=== PATIENT | male | born 1995 | race Caucasian/White ===

== ENCOUNTER 2020-05-31 00:01 | Emergency (ER) | payer BC ==
[~2020-05-31] VITALS: Ht 175.3 cm; Wt 94.4 kg
[2020-05-31] MEDS ORDERED: KETOROLAC 30 MG/ML 1ML VIAL IV ONE (00:30)
[2020-05-31 01:13] LABS: BASO % 0.3 % (0.0-1.0); EOS # 0.1 10^3/uL (0.0-0.5); EOS % 1.3 % (0.0-3.0); HEMATOCRIT 45.8 % (42.0-52.0); HEMOGLOBIN 15.7 g/dl (13.5-17.5); LYMPH # 1.6 10^3/uL (1.5-5.0); LYMPH % 22.7 % (24.0-44.0); MEAN CORPUSCULAR HEMOGLOBIN 29.4 pg (27.0-33.0); MEAN CORPUSCULAR HGB CONC 34.3 g/dl (32.0-36.5); MEAN CORPUSCULAR VOLUME 85.8 fl (80.0-96.0); MONO # 0.5 10^3/uL (0.0-0.8); MONO % 6.6 % (2.0-8.0); NEUTROPHILS # 4.9 10^3/uL (1.5-8.5); NEUTROPHILS % 68.7 % (36.0-66.0); PLATELET COUNT, AUTOMATED 207 10^3/uL (150-450); RED BLOOD COUNT 5.34 10^6/uL (4.30-6.10); WHITE BLOOD COUNT 7.1 10^3/uL (4.0-10.0)
--- NOTE | 2020-05-31 01:16 | REPVR ---
PROCEDURE INFORMATION: Exam: US Scrotum Exam date and time: 05/31/2020 12:24 AM Age: 24 years old Clinical indication: Scrotum pain; Additional info: Right testcular pain, hit RT scrotum during intercourse 1 month ago, sensitive since but increased pain tonight TECHNIQUE: Imaging protocol: Real-time ultrasound of the scrotum and contents with color Doppler and image documentation. COMPARISON: No relevant prior studies available. FINDINGS: Right testicle: Right testes measures 4.4 x 2.5 x 2.9 cm. There is a complex right testicular mass measuring 2.8 x 2.3 x 2.4 cm with minimal internal flow. Left testicle: The left testicle measures 3.9 x 2.0 x 2.7 cm. Epididymides: Left epididymis measures 0.4 cm. Right epididymis measures 0.8 cm. Scrotum: Normal. Other findings: Normal vascular flow to bilateral testicles. IMPRESSION: Complex right testicular mass measuring 2.8 x 2.3 x 2.4 cm. Findings could represent a intra testicular hematoma. Neoplastic lesion not excluded. Short-term ultrasound or MRI can be helpful for further evaluation. Electronically signed by: Joni Arroyo On 05/31/2020 01:16:22 AM
[2020-05-31 01:23] LABS: INR 1.03; PROTHROMBIN TIME 13.7 SECONDS (12.5-14.3)
[2020-05-31 01:24] LABS: PARTIAL THROMBOPLASTIN TIME 24.9 SECONDS (24.2-38.5)
[2020-05-31 01:37] LABS: ALBUMIN 4.3 GM/DL (3.2-5.2); ALT/SGPT 21 U/L (12-78); BILIRUBIN,DIRECT 0.2 MG/DL (0.0-0.2); BILIRUBIN,TOTAL 0.5 MG/DL (0.2-1.0); BLOOD UREA NITROGEN 12 MG/DL (7-18); CALCIUM LEVEL 8.8 MG/DL (8.5-10.1); CARBON DIOXIDE LEVEL 27 MEQ/L (21-32); CHLORIDE LEVEL 106 MEQ/L (98-107); CREATININE FOR GFR 0.87 MG/DL (0.70-1.30); GLOMERULAR FILTRATION RATE > 60.0 (>60); GLUCOSE, FASTING 130 MG/DL (70-100); POTASSIUM SERUM 3.6 MEQ/L (3.5-5.1); SODIUM LEVEL 141 MEQ/L (136-145); TOTAL PROTEIN 7.2 GM/DL (6.4-8.2)
[2020-05-31] MEDS ORDERED: PERCOCET 5MG/325MG TAB PO ONE (03:25)
[2020-05-31 03:27] LABS: CHLAMYDIA DNA AMPLIFICATION NEGATIVE (NEGATIVE); GC DNA AMPLIFICATION NEGATIVE (NEGATIVE)
[2020-05-31] MEDS ORDERED: IBUP80TA PO (03:40)
[2020-05-31 04:25] VITALS: BP 132/68
[2020-06-05] MEDS ORDERED: PERC5TAB12 PO (11:29)
== END 2020-05-31 04:27 | disposition home or self-care (01) ==
LOC: M ED 00:01
DX: N50.89 Other specified disorders of the male genital organs (principal)
CPT/HCPCS: 76870; 80048; 80076; 81001; 82105; 83605; 84702; 85025; 85610; 85730; 87661; 93976; 96374; 99284; J1885

== ENCOUNTER → 2020-06-03 | Outpatient (CLI) | payer BC ==
[~2020-06-03] MED LIST: IBUP80TA PO; PERC5TAB12 PO
[2020-06-03 18:00] LABS: HEMATOCRIT 47.2 % (42.0-52.0); HEMOGLOBIN 15.9 g/dl (13.5-17.5); MEAN CORPUSCULAR HEMOGLOBIN 29.3 pg (27.0-33.0); MEAN CORPUSCULAR HGB CONC 33.7 g/dl (32.0-36.5); MEAN CORPUSCULAR VOLUME 87.1 fl (80.0-96.0); PLATELET COUNT, AUTOMATED 235 10^3/uL (150-450); RED BLOOD COUNT 5.42 10^6/uL (4.30-6.10); WHITE BLOOD COUNT 9.2 10^3/uL (4.0-10.0)
[2020-06-03 18:25] LABS: BACTERIA, URINE AUTO NEGATIVE (NEGATIVE); MUCUS, URINE SMALL (NEGATIVE); RBC, URINE AUTO 0 /HPF (0-3); SQUAMOUS EPITHELIAL CELL UR AU 0 /HPF (0-6); WBC, URINE AUTO 0 /HPF (0-3)
[2020-06-03 18:41] LABS: ALBUMIN 4.6 GM/DL (3.2-5.2); ALT/SGPT 20 U/L (12-78); BLOOD UREA NITROGEN 12 MG/DL (7-18); CALCIUM LEVEL 9.6 MG/DL (8.5-10.1); CARBON DIOXIDE LEVEL 28 MEQ/L (21-32); CHLORIDE LEVEL 102 MEQ/L (98-107); CREATININE FOR GFR 0.86 MG/DL (0.70-1.30); GLOMERULAR FILTRATION RATE > 60.0 (>60); GLUCOSE, FASTING 78 MG/DL (70-100); LDH LACTATE DEHYDROGENASE 156 U/L (87-241); POTASSIUM SERUM 4.5 MEQ/L (3.5-5.1); SODIUM LEVEL 137 MEQ/L (136-145); TOTAL PROTEIN 7.6 GM/DL (6.4-8.2)
--- NOTE | 2020-06-04 03:07 | REPPI ---
INDICATION: N50.89 TESTICULAR MASS Z01.818 PRE OP EXAM COMPARISON: None. TECHNIQUE: PA and lateral. FINDINGS: The mediastinum and cardiac silhouette are normal. The lung wang are clear and without acute consolidation, effusion, or pneumothorax. The skeletal structures are intact and normal. IMPRESSION: No acute cardiopulmonary process. <Electronically signed by Shree Stephenson > 06/04/20 [id number]
== END ==
LOC: M PLAIMG 15:33
PROVIDERS: ATTEND Specialist
DX: N50.89 Other specified disorders of the male genital organs (principal); Z01.818 Encounter for other preprocedural examination

== ENCOUNTER → 2020-06-04 | Outpatient (CLI) | payer BC | LOC: M LABSMTC 12:45 | PROVIDERS: ATTEND Anesthesiology | DX: Z20.822 Contact with and (suspected) exposure to COVID-19 (principal) ==

== ENCOUNTER → 2020-06-05 | Outpatient (CLI) | payer BC ==
[~2020-06-05] MED LIST changes: +GASTROGRAFIN SOLUTION 30ML (Q9963) As Ordered ONE; +ISOVUE-370 76% 100ML VIAL As Ordered ONE
--- NOTE | 2020-06-05 12:11 | REP ---
INDICATION: TESTICULAR MASS. COMPARISON: Scrotal ultrasound dated 05/31/2020. TECHNIQUE: Abdomen/pelvis CT with IV and bowel contrast. Imaging of the abdomen and pelvis is performed during the portal venous phase of enhancement. Imaging of the abdomen, excluding the pelvis is repeated during the renal excretion phase of enhancement. FINDINGS: The visualized lower lung wang demonstrate a 7 mm lung nodule inferiorly anteriorly in the left lung likely in the anterior segment of the left lower lobe just posterior to the major fissure. The hepatic parenchyma, gallbladder, pancreas, spleen, adrenals, kidneys and abdominal aorta are unremarkable on both phases of the study. There is no periaortic adenopathy or mass. There is no mesenteric adenopathy, mass or ascites. The bowel is unremarkable. Pelvis: The patient indicates he has an appendectomy. The bladder is unremarkable. There is no adenopathy or ascites. The pelvic bowel loops are unremarkable. There are no lytic, blastic or destructive skeletal changes. IMPRESSION: Essentially negative CT of the abdomen and pelvis. There is no adenopathy, ascites or mass. <Electronically signed by Felix Ta > 06/05/20 [id number]
== END ==
LOC: M RAD 09:14
PROVIDERS: ATTEND Specialist
DX: N50.89 Other specified disorders of the male genital organs (principal); R91.1 Solitary pulmonary nodule
CPT/HCPCS: 74177; Q9963; Q9967

== ENCOUNTER 2020-06-06 10:53 | Day surgery (SDC) | payer BC ==
[~2020-06-06] VITALS: Ht 177.8 cm; Wt 91.1 kg
[~2020-06-06 10:53] MED LIST changes: +ACETAMINOPHEN 1000MG 100ML IV BTL (OFIRMEV) (J0131 PER 10MG) As Ordered ONE; +BUPIVACAINE/EPIN 0.25% 30 ML VIAL As Ordered ONE; -GASTROGRAFIN SOLUTION 30ML (Q9963) As Ordered ONE; -ISOVUE-370 76% 100ML VIAL As Ordered ONE; +KETOROLAC 60MG 2ML VIAL As Ordered ONE; +LIDOCAINE 1% MDV 20ML VIAL SQ PRN; +LIDOCAINE 2% 100MG/5ML SDV (FOR ANES.) As Ordered ONE; +LR 1,000 ML IV ONE; +MIDAZOLAM INJ 2MG/2ML VIAL (J2250 PER 1MG) As Ordered ONE; +ONDANSETRON 4MG/2ML VIAL As Ordered ONE; +ceFAZolin SOD 2 GM in IV 1 EA IV ONE; +dexameTHASONE 4 MG/ML 1ML VIAL (J1100 PER 1MG) As Ordered ONE; +fentaNYL 100 MCG/2 ML INJECTION (J3010) As Ordered ONE; +propofoL 200 MG/20 ML VIAL As Ordered ONE
[2020-06-06] MEDS ORDERED: ONDANSETRON 4MG/2ML VIAL IV PRN (14:20)
[2020-06-06] MEDS ORDERED: oxyCODONE 5MG TAB PO PRN (14:20)
[2020-06-06] MEDS ORDERED: MEPERIDINE INJ 25 MG/ML VIAL (J2175) IV PRN (14:20)
[2020-06-06] MEDS ORDERED: METOCLOPRAMIDE INJ 10MG/2ML VIAL (J2765 PER 1) IV PRN (14:20)
[2020-06-06] MEDS ORDERED: fentaNYL 100 MCG/2 ML INJECTION (J3010) IV PRN (14:20)
[2020-06-06] MEDS ORDERED: LR 1,000 ML IV SCH (14:20)
[2020-06-06 15:25] VITALS: BP 118/72
--- NOTE | 2020-06-06 15:29 | ROOPDOC ---
[facility] Report Of Operation Report of Operation DATE OF PROCEDURE: 06/06/20 PREPROCEDURE DIAGNOSES: Right scrotal mass POSTPROCEDURE DIAGNOSES: Same PROCEDURE: Right radical inguinal orchiectomy SURGEON: Analy Martinez MD PROCESSING ASSOCIATE: None ANESTHESIA: General ESTIMATED BLOOD LOSS: Approximately 5 mL. COMPLICATIONS: None PROCEDURE NOTE: Patient is a 24-year-old gentleman who went to the emergency room for scrotal pain and a scrotal ultrasound done on 05/31/20 showed a 2.8 cm right testicular mass with an associated hematoma. He denied any trauma to the area. His AFP level was elevated at 151.3. His other tumor markers were normal. A CT scan of the abdomen and pelvis was done which showed no retroperitoneal lymphadenopathy but there was a 7 mm left lower lung nodule anteriorly. After discussing all different options, alternatives, risks, benefits it was decided to proceed with a right radical inguinal orchiectomy for presumed testicular cancer. DESCRIPTION OF PROCEDURE: The patient was brought into the operating room. Sequential compression devices were in place and preoperative antibiotics had be en given. He was placed supine on a padded operating table and prepped and draped in the usual fashion. 10 mL of lidocaine with epi was injected subcutaneousally and a transverse incision was made over the right external inguinal ring. The incision was brought down to external oblique aponeurosis which was opened and the spermatic cord was identified and a vessel loop was placed. The testicle was then pushed from the scrotum through the incision. The gubernacular attachments to the scrotum were all released. The spermatic cord was then released from its attachments. The vas deferens was ligated using 2-0 silk sutures. The spermatic cord was then clamped at the level of the internal inguinal ring and was double suture ligated proximally. The specimen was sent to pathology. Irrigation was done. The external oblique aponeurosis was reapproximated using 2-0 chromic and skin was closed using 4-0 Monocryl subcutaneously. The patient tolerated the procedure well and was returned to the recovery room in stable condition. ANALY MARTINEZ MD Jun 06, 2020 15:29
== END 2020-06-06 15:25 | disposition home or self-care (01) ==
LOC: M SDC 10:53
PROVIDERS: ATTEND Specialist
DX: C62.91 Malignant neoplasm of right testis, unspecified whether descended or undescended (principal); J45.909 Unspecified asthma, uncomplicated; Z79.899 Other long term (current) drug therapy
CPT/HCPCS: 54530; 88309; J0131; J0690; J1100; J1885; J2250; J2405; J3010

== ENCOUNTER → 2020-07-08 | Outpatient (REF) | payer BC ==
[~2020-07-08] MED LIST changes: -ACETAMINOPHEN 1000MG 100ML IV BTL (OFIRMEV) (J0131 PER 10MG) As Ordered ONE; -BUPIVACAINE/EPIN 0.25% 30 ML VIAL As Ordered ONE; -KETOROLAC 60MG 2ML VIAL As Ordered ONE; -LIDOCAINE 1% MDV 20ML VIAL SQ PRN; -LIDOCAINE 2% 100MG/5ML SDV (FOR ANES.) As Ordered ONE; -LR 1,000 ML IV ONE; -MIDAZOLAM INJ 2MG/2ML VIAL (J2250 PER 1MG) As Ordered ONE; -ONDANSETRON 4MG/2ML VIAL As Ordered ONE; -ceFAZolin SOD 2 GM in IV 1 EA IV ONE; -dexameTHASONE 4 MG/ML 1ML VIAL (J1100 PER 1MG) As Ordered ONE; -fentaNYL 100 MCG/2 ML INJECTION (J3010) As Ordered ONE; -propofoL 200 MG/20 ML VIAL As Ordered ONE
== END ==
LOC: M PLALAB 15:27
PROVIDERS: ATTEND Urology
DX: C62.90 Malignant neoplasm of unspecified testis, unspecified whether descended or undescended (principal)

== ENCOUNTER → 2020-09-18 | Outpatient (CLI) | payer BC | LOC: M PLALAB 07:32 | PROVIDERS: ATTEND Urology | DX: C62.90 Malignant neoplasm of unspecified testis, unspecified whether descended or undescended (principal) ==

== ENCOUNTER → 2020-12-12 | Outpatient (CLI) | payer BC ==
[~2020-12-12] MED LIST changes: +ISOVUE-370 76% 100ML VIAL As Ordered ONE
--- NOTE | 2020-12-12 16:31 | REP ---
INDICATION: TESTICULAR CA / LABS 1ST. COMPARISON: 06/03/2020 FINDINGS: The superior mediastinal structures are midline. The cardiac silhouette is unremarkable in size, shape, and position. The diaphragmatic surfaces of the lungs are regular, and the costophrenic angles are clear. The pulmonary wang are clear. The imaged osseous structures are intact. IMPRESSION: There is no acute cardiopulmonary disease. <Electronically signed by Rajan Coker > 12/12/20 [id number]
--- NOTE | 2020-12-12 16:55 | REP ---
INDICATION: TESTICULAR CA. COMPARISON: 06/05/2020 the only prior TECHNIQUE: Standard helical technique after the intravenous administration of 100 cc Isovue 370 FINDINGS: The lung bases are clear. The liver, spleen, pancreas, adrenal glands, and kidneys are within normal limits. Gallbladder is contracted. The abdominal aorta and para-aortic regions are within normal limits. The bowel loops and the mesenteries are within normal limits. There is no evidence of a mass or adenopathy. There is no free fluid or free air. Bone window technique throughout the examination shows the osseous structures to be within normal limits. IMPRESSION: CT findings are within normal limits. <Electronically signed by Rajan Coker > 12/12/20 [id number]
== END ==
LOC: M LAB 15:51
PROVIDERS: ATTEND Urology
DX: C62.90 Malignant neoplasm of unspecified testis, unspecified whether descended or undescended (principal)
CPT/HCPCS: 36415; 71046; 74177; 82105; 83615; 84702; Q9967

== ENCOUNTER → 2021-02-17 | Outpatient (CLI) | payer BC ==
[~2021-02-17] MED LIST changes: -ISOVUE-370 76% 100ML VIAL As Ordered ONE
== END ==
LOC: M LAB 17:57
PROVIDERS: ATTEND Urology
DX: C62.90 Malignant neoplasm of unspecified testis, unspecified whether descended or undescended (principal)